=== PATIENT | female | born 1995 | race Hispanic/Latino ===

== ENCOUNTER 2017-11-03 19:16 | Emergency (ER) | payer OTHER ==
[2017-11-03] MEDS ORDERED: ACETAMINOPHEN EXTRA STRENGTH 500 MG TABLET ONE (20:13)
== END 2017-11-03 20:24 | disposition home or self-care (01) ==
LOC: EDH 19:16
DX: S90.02XA Contusion of left ankle, initial encounter (principal); S80.12XA Contusion of left lower leg, initial encounter; W07.XXXA Fall from chair, initial encounter; Y93.89 Activity, other specified; Y92.89 Other specified places as the place of occurrence of the external cause; Y99.8 Other external cause status
CPT/HCPCS: 73590; 73610

== ENCOUNTER 2020-06-08 17:50 | Emergency (ER) | payer MEDICAID, OTHER ==
[2020-06-08] MEDS ORDERED: CEFTRIAXONE SODIUM 2 GM VIAL ONE (18:28)
[2020-06-08] MEDS ORDERED: DEXAMETHASONE SOD PHOSPHATE 10MG/ML 1ML VIAL ONE (18:28)
[2020-06-08] MEDS ORDERED: ACETAMINOPHEN EXTRA STRENGTH 500 MG TABLET ONE (18:29)
[2020-06-08] MEDS ORDERED: SODIUM CHLORIDE 0.9% 1000ML 1,000 ML IV ONE (18:29)
[2020-06-08 19:01] LABS: RAPID GROUP A STREP NEGATIVE (NEGATIVE)
[2020-06-08 19:13] LABS: APPEARANCE,URINE Clear (CLEAR); BILIRUBIN,URINE Small (NEGATIVE); COLOR,URINE Dark Yellow (YELLOW); GLUCOSE, URINE (UA) Negative (NEGATIVE); KETONES,URINE 15 mg/dL (NEGATIVE); LEUKOCYTE ESTERASE ,URINE Trace (NEGATIVE); NITRATE,URINE Negative (NEGATIVE); OCCULT BLOOD,URINE Small (NEGATIVE); PROTEIN,URINE 300 mg/dL (NEGATIVE)
[2020-06-08 19:15] LABS: BASOPHILS % (AUTO) 0.5 % (0.0-5.0); EOSINOPHILS % (AUTO) 0.2 % (0.0-8.0); HEMATOCRIT 40.3 % (36-48); MEAN CORPUSCULAR HEMOGLOBIN 26.6 pg (27.0-33.0); MEAN CORPUSCULAR HGB CONC 31.5 g/dL (32.0-36.0); MEAN CORPUSCULAR VOLUME 84.5 fL (79-99); MONOCYTES % (AUTO) 10.9 % (3.0-13.0); NEUTROPHILS % (AUTO) 79.8 % (40.0-77.0); PLATELET COUNT (AUTO) 538 K/uL (130-400); RED BLOOD CELL COUNT(AUTO) 4.77 MIL/uL (4.00-5.50); RED CELL DISTRIBUTION WIDTH 13.5 % (11.0-15.5); WHITE BLOOD COUNT (AUTO) 12.3 K/uL (4.8-10.8)
[2020-06-08 19:21] LABS: HCG,QUAL RESULT NEGATIVE (NEGATIVE)
[2020-06-08 19:29] LABS: BACTERIA,URINE Moderate /HPF (None Seen); MUCUS,URINE Many LPF (None Seen); SQUAMOUS EPITHELIAL CELL,UR Moderate /HPF (0-2)
[2020-06-08 19:31] LABS: CARBON DIOXIDE 29 mmol/L (21-32); CHLORIDE 97 mmol/L (101-111); CREATININE 0.9 mg/dL (0.5-1.5); GLOMERULAR FILTR. RATE CALC 82 mL/min (>60); GLUCOSE,RANDOM 109 mg/dL (70-105); POTASSIUM 3.4 mmol/L (3.5-5.1); SODIUM SERUM 134 mmol/L (136-145); UREA NITROGEN, BLOOD 15 mg/dL (7-18)
[2020-06-08 19:45] LABS: ALANINE AMINOTRANSFERASE 43 U/L (12-78); ALBUMIN 3.6 g/dL (3.5-5.0); ASPARTATE AMINOTRANSFERASE 34 U/L (10-37); BILIRUBIN,TOTAL 0.1 mg/dL (0.2-1.0); CREATINE KINASE, TOTAL 57 U/L (21-232); MYOGLOBIN 22 ng/mL (10-92); TOTAL PROTEIN, SERUM 9.1 g/dL (6.0-8.3); TROPONIN I < 0.04 ng/mL (0.00-0.06)
[2020-06-08 19:51] LABS: INR 0.96 (0.85-1.15); PARTIAL THROMBOPLASTIN TIME 25.5 SEC (26.3-35.5); PROTHROMBIN TIME 10.4 SEC (9.6-11.6)
== END 2020-06-08 20:33 | disposition home or self-care (01) ==
LOC: EDH 17:50
DX: J03.90 Acute tonsillitis, unspecified (principal); R50.9 Fever, unspecified; E86.0 Dehydration; Z72.0 Tobacco use
CPT/HCPCS: 36415; 71045; 80053; 81001; 81025; 82550; 83605; 83874; 84145; 84484; 85025; 85610; 85730; 86900; 86901; 87040 ×2; 87088; 87804 ×2; 87880; 93005; 96361; 96374; 96375; 99285; J0696; J1100; J7030

== ENCOUNTER 2020-09-21 20:50 | Emergency (ER) | payer SELFPAY ==
[2020-09-21] MEDS ORDERED: DICYCLOMINE 20MG (10MG/ML) AMP IM ONE (21:09)
[2020-09-21] MEDS ORDERED: ONDANSETRON ODT 4MG TAB ONE (21:10)
[2020-09-21 21:11] LABS: BASOPHILS % (AUTO) 0.6 % (0.0-5.0); HEMATOCRIT 36.8 % (36-48); LYMPHOCYTES % (AUTO) 25.5 % (21.0-51.0); MEAN CORPUSCULAR HEMOGLOBIN 28.1 pg (27.0-33.0); MEAN CORPUSCULAR HGB CONC 32.3 g/dL (32.0-36.0); MONOCYTES % (AUTO) 6.9 % (3.0-13.0); NEUTROPHILS % (AUTO) 64.6 % (40.0-77.0); PLATELET COUNT (AUTO) 541 K/uL (130-400); RED BLOOD CELL COUNT(AUTO) 4.23 MIL/uL (4.00-5.50); RED CELL DISTRIBUTION WIDTH 13.4 % (11.0-15.5); WHITE BLOOD COUNT (AUTO) 14.3 K/uL (4.8-10.8)
[2020-09-21 21:12] LABS: APPEARANCE,URINE Clear (CLEAR); BILIRUBIN,URINE Negative (NEGATIVE); COLOR,URINE Yellow (YELLOW); GLUCOSE, URINE (UA) Negative (NEGATIVE); KETONES,URINE Negative (NEGATIVE); LEUKOCYTE ESTERASE ,URINE Trace (NEGATIVE); NITRATE,URINE Negative (NEGATIVE); OCCULT BLOOD,URINE Negative (NEGATIVE); PROTEIN,URINE Negative (NEGATIVE); UROBILINOGEN,URINE 0.2 mg/dL (0.2-1.0)
[2020-09-21 21:17] LABS: HCG,QUAL RESULT POSITIVE (NEGATIVE)
[2020-09-21 21:28] LABS: CREATININE 0.6 mg/dL (0.5-1.5); POTASSIUM 3.4 mmol/L (3.5-5.1)
[2020-09-21] MEDS ORDERED: 0.9%NACL 1000ML 1,000 ML IV ONE (21:32)
[2020-09-21 21:34] LABS: ALBUMIN 3.7 g/dL (3.5-5.0); BILIRUBIN,TOTAL 0.1 mg/dL (0.2-1.0)
[2020-09-21 21:36] LABS: BACTERIA,URINE None Seen /HPF (None Seen); RBC,URINE None Seen /HPF (0-1); SQUAMOUS EPITHELIAL CELL,UR 0-2 /HPF (0-2)
[2020-09-21 21:37] LABS: WBC,URINE 0-1 /HPF (0-1)
== END 2020-09-21 23:05 | disposition home or self-care (01) ==
LOC: EDH 20:50
DX: O26.891 Other specified pregnancy related conditions, first trimester (principal); R10.30 Lower abdominal pain, unspecified; Z98.890 Other specified postprocedural states; Z3A.01 Less than 8 weeks gestation of pregnancy
CPT/HCPCS: 36415; 76801; 80053; 81001; 81025; 83690; 84702; 85025; 96361; 96372; 99284; J0500; J7030

== ENCOUNTER 2020-11-07 08:06 | Emergency (ER) | payer OTHER ==
[2020-11-07 08:39] LABS: APPEARANCE,URINE CLOUDY (CLEAR); BILIRUBIN,URINE NEGATIVE (NEGATIVE); COLOR,URINE YELLOW (YELLOW); GLUCOSE, URINE (UA) NEGATIVE (NEGATIVE); KETONES,URINE NEGATIVE (NEGATIVE); LEUKOCYTE ESTERASE ,URINE LARGE (NEGATIVE); NITRATE,URINE NEGATIVE (NEGATIVE); OCCULT BLOOD,URINE SMALL (NEGATIVE); PROTEIN,URINE 30 mg/dL (NEGATIVE); UROBILINOGEN,URINE 0.2 mg/dL (0.2-1.0)
[2020-11-07 08:52] LABS: BACTERIA,URINE Few /HPF (None Seen); WBC,URINE 51-100 /HPF (0-1)
[2020-11-07] MEDS ORDERED: LIDOCAINE HCL-MPF 1% 2ML VIAL ONE (09:19)
[2020-11-07] MEDS ORDERED: CEFTRIAXONE SODIUM 1 GM ONE (09:19)
== END 2020-11-07 10:02 | disposition home or self-care (01) ==
LOC: EDH 08:06
DX: O23.42 Unspecified infection of urinary tract in pregnancy, second trimester (principal); Z3A.15 15 weeks gestation of pregnancy; Z98.890 Other specified postprocedural states
CPT/HCPCS: 81001; 87077; 87088; 87186; 96372; 99283; J0696; J3490

== ENCOUNTER 2021-02-22 14:49 | Observation (INO) | payer MEDICAID, OTHER ==
[~2021-02-22] VITALS: Ht 157.5 cm; Wt 66.2 kg
[2021-02-22 14:50] VITALS: BP 116/63
[2021-02-22] MEDS ORDERED: LACTATED RINGERS 1000ML 1,000 ML IV PRN (16:15)
[2021-02-22] MEDS ORDERED: TERBUTALINE SULFATE VIAL 1MG/ML SQ PRN (16:15)
[2021-02-22 17:43] LABS: APPEARANCE,URINE Clear (CLEAR); BILIRUBIN,URINE Negative (NEGATIVE); COLOR,URINE Yellow (YELLOW); GLUCOSE, URINE (UA) Negative (NEGATIVE); KETONES,URINE Negative (NEGATIVE); LEUKOCYTE ESTERASE ,URINE Large (NEGATIVE); NITRATE,URINE Negative (NEGATIVE); OCCULT BLOOD,URINE Negative (NEGATIVE); PROTEIN,URINE Negative (NEGATIVE); UROBILINOGEN,URINE 0.2 mg/dL (0.2-1.0)
[2021-02-22 17:51] LABS: AMPHET/METH SCREEN,URINE NEGATIVE (NEGATIVE); BARBITURATE SCREEN, URINE NEGATIVE (NEGATIVE); BENZODIAZEPINES SCREEN,URINE NEGATIVE (NEGATIVE); CANNABINOID SCREEN,URINE NEGATIVE (NEGATIVE); COCAINE SCREEN,URINE NEGATIVE (NEGATIVE); OPIATE SCREEN,URINE NEGATIVE (NEGATIVE); PHENCYCLIDINE SCREEN,URINE NEGATIVE (NEGATIVE)
[2021-02-22 17:53] LABS: BACTERIA,URINE Many /HPF (None Seen); MUCUS,URINE Moderate LPF (None Seen); RBC,URINE None Seen /HPF (0-1); WBC,URINE 51-100 /HPF (0-1)
[2021-02-22 18:14] VITALS: BP 111/66
== END 2021-02-22 18:48 | disposition home or self-care (01) ==
LOC: EDH 14:49 → LDH 15:20
PROVIDERS: ADMIT Obstetrics & Gynecology; ATTEND Obstetrics & Gynecology
DX: O34.61 Maternal care for abnormality of vagina, first trimester (principal); N89.8 Other specified noninflammatory disorders of vagina; O34.219 Maternal care for unspecified type scar from previous cesarean delivery; Z79.899 Other long term (current) drug therapy; Z3A.29 29 weeks gestation of pregnancy
CPT/HCPCS: 59025; 76805; 80305; 81001; 87077; 87088; 87186; 96360; 96361; G0378 ×4

== ENCOUNTER 2021-05-09 06:01 | Inpatient (IN) | payer MEDICAID ==
[~2021-05-09] VITALS: Ht 157.5 cm; Wt 69.9 kg
[2021-05-09 06:07] VITALS: BP 132/77
[2021-05-09] MEDS ORDERED: LACTATED RINGERS 1000ML IV SCH (06:30)
[2021-05-09] MEDS ORDERED: CEFAZOLIN SODIUM 1 GM VIAL IVP PRN (07:00)
[2021-05-09] MEDS ORDERED: LACTATED RINGERS 1000ML 1,000 ML IV SCH (07:00)
[2021-05-09 07:31] LABS: APPEARANCE,URINE Clear (CLEAR); BILIRUBIN,URINE Negative (NEGATIVE); COLOR,URINE Yellow (YELLOW); GLUCOSE, URINE (UA) Negative (NEGATIVE); KETONES,URINE Negative (NEGATIVE); LEUKOCYTE ESTERASE ,URINE Trace (NEGATIVE); NITRATE,URINE Negative (NEGATIVE); OCCULT BLOOD,URINE Negative (NEGATIVE); PROTEIN,URINE Negative (NEGATIVE); UROBILINOGEN,URINE 0.2 mg/dL (0.2-1.0)
[2021-05-09 07:37] LABS: BACTERIA,URINE Rare /HPF (None Seen); RBC,URINE 0-1 /HPF (0-1); SQUAMOUS EPITHELIAL CELL,UR Rare /HPF (0-2); WBC,URINE 0-1 /HPF (0-1)
[2021-05-09 07:38] LABS: AMPHET/METH SCREEN,URINE NEGATIVE (NEGATIVE); BARBITURATE SCREEN, URINE NEGATIVE (NEGATIVE); BENZODIAZEPINES SCREEN,URINE NEGATIVE (NEGATIVE); CANNABINOID SCREEN,URINE NEGATIVE (NEGATIVE); COCAINE SCREEN,URINE NEGATIVE (NEGATIVE); OPIATE SCREEN,URINE NEGATIVE (NEGATIVE); PHENCYCLIDINE SCREEN,URINE NEGATIVE (NEGATIVE)
[2021-05-09 07:51] LABS: HEMATOCRIT 28.6 % (36-48); MEAN CORPUSCULAR HGB CONC 29.7 g/dL (32.0-36.0); MEAN CORPUSCULAR VOLUME 74.1 fL (79-99); PLATELET COUNT (AUTO) 497 K/uL (130-400); RED BLOOD CELL COUNT(AUTO) 3.86 MIL/uL (4.00-5.50); RED CELL DISTRIBUTION WIDTH 15.5 % (11.0-15.5); WHITE BLOOD COUNT (AUTO) 8.3 K/uL (4.8-10.8)
[2021-05-09] MEDS ORDERED: FENTANYL CITRATE PF 50 MCG/1 ML 2ML VIAL ONE ×2 (10:26→12:31)
[2021-05-09] MEDS ORDERED: METHYLERGONOVINE MALEATE 0.2 MG/1 ML ML IM PRN (10:30)
[2021-05-09] MEDS ORDERED: MISOPROSTOL 200 MCG TABLET PR PRN (10:30)
[2021-05-09] MEDS ORDERED: MEPERIDINE-PF 50 MG/ML SYG IVP SCH (10:30)
[2021-05-09] MEDS ORDERED: CITRIC ACID/SODIUM CITRATE 30 ML UDCUP PO PRN (10:30)
[2021-05-09] MEDS ORDERED: METOCLOPRAMIDE 10 MG/2 ML VIAL IVP PRN (10:30)
[2021-05-09] MEDS ORDERED: PROMETHAZINE HCL 25 MG/ML 1ML AMPULE IM PRN ×2 (10:30→17:00)
[2021-05-09] MEDS ORDERED: OXYTOCIN-LR 20 UNITS/1000 ML 2,000 ML IV ONE (12:23)
[2021-05-09 12:24] LABS: RAPID PLASMA REAGIN NONREACTIVE (NONREACTIVE)
[2021-05-09] MEDS ORDERED: DEXAMETHASONE SOD PHOSPHATE 10MG/ML 1ML VIAL ONE (12:30)
[2021-05-09] MEDS ORDERED: ONDANSETRON 4MG INJ ONE ×2 (12:30→12:54)
[2021-05-09] MEDS ORDERED: MORPHINE PF 100MG/10ML AMP IV ONE (12:30)
[2021-05-09] MEDS ORDERED: METHYLERGONOVINE MALEATE 0.2 MG/1 ML ML IM ONE (12:59)
[2021-05-09] MEDS ORDERED: PHENYLEPHRINE HCL 10 MG/ML 1ML VIAL IV ONE (13:20)
[2021-05-09] MEDS ORDERED: LORATADINE 10 MG TABLET PO PRN (15:30)
[2021-05-09 15:56] VITALS: BP 146/75
[2021-05-09] MEDS ORDERED: 0.9%NACL 10ML VIAL IVP PRN (17:00)
[2021-05-09] MEDS ORDERED: MEPERIDINE-PF 75 MG/ML SYG IM PRN (17:00)
[2021-05-09] MEDS ORDERED: OXYTOCIN-LR 20 UNITS/1000 ML 1,000 ML IV PRN (17:00)
[2021-05-09 19:48] VITALS: BP 108/61
[2021-05-09] MEDS: ACETAMINOPHEN WITH CODEINE 1 TAB TAB PO PRN (20:00)
[2021-05-09] MEDS: DEXTROSE 5 %-0.45 % NACL 1,000 ML IV PRN (21:07)
[2021-05-09 23:47] VITALS: BP 91/51
[2021-05-10 04:46] VITALS: BP 106/66
[2021-05-10] MEDS: ACETAMINOPHEN WITH CODEINE 1 TAB TAB PO PRN ×3 (05:19→20:44)
[2021-05-10] MEDS: DEXTROSE 5 %-0.45 % NACL 1,000 ML IV PRN (05:21)
[2021-05-10 06:45] LABS: HEMATOCRIT 24.4 % (36-48); MEAN CORPUSCULAR HGB CONC 29.1 g/dL (32.0-36.0); MEAN CORPUSCULAR VOLUME 75.8 fL (79-99); RED BLOOD CELL COUNT(AUTO) 3.22 MIL/uL (4.00-5.50); RED CELL DISTRIBUTION WIDTH 15.3 % (11.0-15.5); WHITE BLOOD COUNT (AUTO) 13.1 K/uL (4.8-10.8)
[2021-05-10 07:16] LABS: HEPATITIS Bs ANTIGEN SCREEN P Negative (Negative)
[2021-05-10 08:11] VITALS: BP 95/58
[2021-05-10] MEDS ORDERED: ACETAMINOPHEN 500 MG TABLET PO PRN (09:00)
[2021-05-10] MEDS ORDERED: BISACODYL 10 MG SUPP.RECT RC PRN (09:00)
[2021-05-10] MEDS ORDERED: ACETAMINOPHEN WITH CODEINE 1 TAB TAB PO PRN (09:00)
[2021-05-10] MEDS ORDERED: HYDROCODONE/ACETAMINOPHEN 5/325 MG TAB PO PRN (09:00)
[2021-05-10] MEDS ORDERED: LANOLIN 30GM OINTMENT TP PRN (09:00)
[2021-05-10 11:31] VITALS: BP 112/78
[2021-05-10] MEDS: DOCUSATE SODIUM 100 MG CAP PO SCH ×2 (12:06→20:37)
[2021-05-10] MEDS: SIMETHICONE 80 MG TAB.CHEW PO PRN ×2 (12:06→20:37)
[2021-05-10 16:55] VITALS: BP 118/70
[2021-05-10 19:31] VITALS: BP 123/75
[2021-05-10] MEDS ORDERED: DIPH,PERTUSS(ACELL),TET VAC/PF 0.5 ML VIAL IM ONE (21:00)
[2021-05-10] MEDS ORDERED: MEASLES/MUMPS/RUBELLA VACCINE, LIVE 0.5 ML/VIAL SQ ONE (21:00)
[2021-05-10 23:14] VITALS: BP 99/60
[2021-05-10] MEDS: IBUPROFEN 600 MG TABLET PO PRN (23:32)
[2021-05-11 03:37] VITALS: BP 110/69
[2021-05-11 07:16] VITALS: BP 114/75
[2021-05-11] MEDS: DOCUSATE SODIUM 100 MG CAP PO SCH (09:05)
[2021-05-11] MEDS: IBUPROFEN 600 MG TABLET PO PRN (09:07)
[2021-05-11 11:39] VITALS: BP 114/71
== END 2021-05-11 13:00 | disposition home or self-care (01) | DRG 540 ==
LOC: EDH 06:01 → OBSVTOIN 06:13 → LDH 06:13 → WSH 16:10
PROVIDERS: ADMIT Specialist; ATTEND Specialist
PROC: 3E0234Z Introduction of Serum, Toxoid and Vaccine into Muscle, Percutaneous Approach (ICD-10-PCS; 2021-05-09)
PROC: 3E0134Z Introduction of Serum, Toxoid and Vaccine into Subcutaneous Tissue, Percutaneous Approach (ICD-10-PCS; 2021-05-09)
PROC: 10D00Z1 Extraction of Products of Conception, Low, Open Approach (ICD-10-PCS; principal; 2021-05-09 13:00)
DX: O34.211 Maternal care for low transverse scar from previous cesarean delivery (principal); D64.9 Anemia, unspecified; O99.02 Anemia complicating childbirth; Z3A.40 40 weeks gestation of pregnancy; Z37.0 Single live birth; Z23 Encounter for immunization
CPT/HCPCS: 36415; 59510; 80305; 81001; 85027; 86592; 86701; 86850; 86870; 86880; 86900; 86901; 86905; 86922; 87340; 87390; 90707; 90715; A4344; G0378; J0690; J1100; J2210; J2274; J2370; J2405; J2590; J2765; J3010; J7120

== ENCOUNTER 2021-08-10 06:13 | Emergency (ER) | payer MEDICAID ==
[~2021-08-10] VITALS: Ht 157.5 cm; Wt 63.5 kg
[2021-08-10 06:19] VITALS: BP 98/53
== END 2021-08-10 08:36 | disposition left against medical advice (07) ==
LOC: EDH 06:13
DX: R10.9 Unspecified abdominal pain (principal); Z53.21 Procedure and treatment not carried out due to patient leaving prior to being seen by health care provider

== ENCOUNTER 2022-06-17 09:22 | Emergency (ER) | payer MEDICAID ==
[~2022-06-17] VITALS: Ht 157.5 cm; Wt 68.0 kg
[2022-06-17 09:33] VITALS: BP 128/63
[2022-06-17] MEDS ORDERED: FLUC150T48 PO (09:58)
[2022-06-17] MEDS ORDERED: CLOT15C TP (09:58)
[2022-06-17] MEDS ORDERED: FLUCONAZOLE 100 MG TAB PO ONE (10:00)
== END 2022-06-17 10:34 | disposition home or self-care (01) ==
LOC: EDH 09:22
DX: B35.3 Tinea pedis (principal); B35.2 Tinea manuum; Z98.890 Other specified postprocedural states

== ENCOUNTER 2023-01-06 15:06 | Emergency (ER) | payer MEDICAID ==
[~2023-01-06] VITALS: Ht 157.5 cm; Wt 72.6 kg
[~2023-01-06 15:06] MED LIST: CLOT15C TP; FLUC150T48 PO
[2023-01-06 15:53] VITALS: BP 160/41
== END 2023-01-06 17:53 | disposition home or self-care (01) ==
LOC: EDH 15:06
DX: B34.9 Viral infection, unspecified (principal); Z98.890 Other specified postprocedural states; Z20.822 Contact with and (suspected) exposure to COVID-19
CPT/HCPCS: 99283; 87635; 87880; 87804 ×2; C9803

== ENCOUNTER 2023-09-02 11:17 | Emergency (ER) | payer MEDICAID | END 2023-09-02 11:46 | disposition left against medical advice (07) | LOC: EDH 11:17 | DX: Z53.21 Procedure and treatment not carried out due to patient leaving prior to being seen by health care provider (principal) ==

== ENCOUNTER 2023-09-02 11:59 | Emergency (ER) | payer MEDICAID, OTHER ==
[~2023-09-02] VITALS: Ht 157.5 cm; Wt 79.4 kg
[2023-09-02 12:02] VITALS: BP 117/60; PULSE 98; RESP 16
[2023-09-02 13:02] LABS: BASOPHILS # (AUTO) 0.09 K/uL (0.00-0.20); BASOPHILS % (AUTO) 1.1 % (0.0-5.0); EOSINOPHILS # (AUTO) 0.42 K/uL (0.00-0.70); HEMATOCRIT 36.8 % (36-48); IMMATURE GRANULOCYTE ABSOLUTE 0.04 K/uL (0-1); LYMPHOCYTES # (AUTO) 1.9 K/uL (1.0-4.8); MEAN CORPUSCULAR HEMOGLOBIN 28.1 pg (27.0-33.0); MEAN CORPUSCULAR HGB CONC 32.9 g/dL (32.0-36.0); MEAN CORPUSCULAR VOLUME 85.4 fL (79-99); MONOCYTES # (AUTO) 0.6 K/uL (0.1-1.0); MONOCYTES % (AUTO) 7.2 % (3.0-13.0); NEUTROPHILS # (AUTO) 5.4 K/uL (1.8-7.7); NEUTROPHILS % (AUTO) 64.2 % (40.0-77.0); PLATELET COUNT (AUTO) 488 K/uL (130-400); RED BLOOD CELL COUNT(AUTO) 4.31 MIL/uL (4.00-5.50); RED CELL DISTRIBUTION WIDTH 13.6 % (11.0-15.5); WHITE BLOOD COUNT (AUTO) 8.4 K/uL (4.8-10.8)
[2023-09-02 13:18] LABS: CREATININE 0.8 mg/dL (0.5-1.5); POTASSIUM 3.7 mmol/L (3.5-5.1)
[2023-09-02 13:28] LABS: ALBUMIN 3.4 g/dL (3.5-5.0); BILIRUBIN,TOTAL 0.2 mg/dL (0.2-1.0); TOTAL PROTEIN, SERUM 7.2 g/dL (6.0-8.3)
== END 2023-09-02 17:25 | disposition left against medical advice (07) ==
LOC: EDH 11:59
DX: N93.9 Abnormal uterine and vaginal bleeding, unspecified (principal); Z53.21 Procedure and treatment not carried out due to patient leaving prior to being seen by health care provider
CPT/HCPCS: 36415; 76830; 80053; 84702; 85025; 86900; 86901; 99281